=== PATIENT | male | born 1955 | race Caucasian/White ===

== ENCOUNTER 2020-03-17 05:55 | Outpatient (RCR) | payer MEDICARE, OTHER ==
[~2020-03-17] VITALS: Ht 180.3 cm; Wt 97.7 kg
[2020-03-17] MEDS ORDERED: ALPR0.5T7 PO (13:55)
[2020-03-17] MEDS ORDERED: SOUR1000 PO (13:55)
[2020-03-17] MEDS ORDERED: ROSU10TA22 PO (13:55)
[2020-03-17] MEDS ORDERED: CYAN1TAB7 SL (13:55)
[2020-03-17] MEDS ORDERED: ZOLP5TAB7 PO (13:55)
[2020-03-17] MEDS ORDERED: RED600CA2 PO (13:55)
[2020-03-17] MEDS ORDERED: FISH1CAP3 PO (13:55)
[2020-03-17] MEDS ORDERED: CHOL10007 PO (13:55)
[2020-03-17] MEDS ORDERED: AMLO-250 PO (13:55)
[2020-03-17] MEDS ORDERED: ESCI20TA PO (13:55)
[2020-03-17] MEDS ORDERED: CALC1TAB84 PO (13:55)
[2020-03-17] MEDS ORDERED: MULT-1056 PO (13:55)
[2020-03-17] MEDS ORDERED: FENU500C PO (13:55)
[2020-03-17] MEDS ORDERED: ASCO-262 PO (13:55)
== END 2020-03-17 14:03 | disposition home or self-care (01) ==
LOC: PREOP 05:55
PROVIDERS: ATTEND Orthopaedic Surgery
DX: Z01.818 Encounter for other preprocedural examination (principal)

== ENCOUNTER 2020-03-24 06:22 | Day surgery (SDC) | payer MEDICARE, OTHER ==
--- NOTE | 2020-03-15 09:48 | HISTORY AND PHYSICAL ---
DATE OF SERVICE: ADMISSION HISTORY AND PHYSICAL DATE OF ADMISSION: 03/24/2020. Date of service, date of surgery and date of admission will be 03/24/2020 for right shoulder arthroscopy. HISTORY OF PRESENT ILLNESS: The patient is a 65-year-old right hand dominant gentleman with progressively worsening right shoulder pain. He reports a several month history of pain specifically with overhead activities. He reports popping and catching in his right shoulder. He reports no improvement with activity modifications. He denies neck pain, denies paresthesias. Due to functional impairment, the patient has elected to proceed with surgical intervention. REVIEW OF SYSTEMS: No chest pain, no shortness of breath and no dysuria. PAST MEDICAL HISTORY: Pulmonary fibrosis, hypertension and anxiety. PAST SURGICAL HISTORY: Coronary catheterization, left shoulder and bilateral feet. FAMILY HISTORY: Significant for Alzheimer's lymphoma. PRIMARY CARE PROVIDER: Dr. Bonilla. MEDICATIONS: Aspirin, Lexapro, rosuvastatin, amlodipine, alprazolam, Esbriet, hydrocodone and Ambien. ALLERGIES: No known drug allergies. SOCIAL HISTORY: The patient drinks alcohol socially. He is a former smoker. RADIOGRAPHS: Reveal no acute or chronic changes of the right shoulder. PHYSICAL EXAMINATION: GENERAL: The patient is well-developed, well-nourished and in no acute distress. HEENT: Normocephalic and atraumatic. Pupils are equal, round and reactive lateral. Oropharynx is clear. NECK: Supple, no lymphadenopathy. LUNGS: Clear to auscultation bilaterally. HEART: Regular rate and rhythm. ABDOMEN: Soft, nontender and nondistended. EXTREMITIES: The right shoulder demonstrates positive Neer's and positive Hawkin sign. He has crepitus with glenohumeral rotation with a positive Suffolk's maneuver. He has pain with resisted abduction and external rotation, but no weakness elicited. He has full active forward elevation, external and internal rotation, but it is painful beyond 90 degrees. He has negative Spurling's maneuver. IMPRESSION: Right shoulder SLAP tear with possible rotator cuff tear. PLAN: Right shoulder arthroscopy with biceps tenotomy, labral debridement, acromioplasty and possible rotator cuff repair. The risks, benefits, options, ramifications and recovery were discussed at length with the patient. He understands and wishes to proceed. Job ID: [id number] DocumentID: [id number] Dictated Date: 03/15/2020 08:15:38 Leasing Sales Consultant Date: 03/15/2020 09:47:55 Dictated By: HUMA DOS SANTOS MD
[2020-03-24] VITALS (11 sets, daily range): BP systolic 117–136; BP diastolic 78–108
[~2020-03-24] VITALS: Ht 180.3 cm; Wt 97.7 kg
[~2020-03-24 06:22] MED LIST: ALPR0.5T7 PO; AMLO-250 PO; ASCO-262 PO; CALC1TAB84 PO; CHOL10007 PO; CYAN1TAB7 SL; ESCI20TA PO; FENU500C PO; FISH1CAP3 PO; MULT-1056 PO; RED600CA2 PO; ROSU10TA22 PO; SOUR1000 PO; ZOLP5TAB7 PO
[2020-03-24] MEDS ORDERED: LACTATED RINGERS 1,000 ML IV PRN (06:27)
[2020-03-24] MEDS ORDERED: ceFAZolin INJECTION 1,000 MG in WATER (STERILE) FOR INJECTION 10 ML IV ONE (06:30)
[2020-03-24] MEDS ORDERED: BUPIVACAINE 0.5% 30 ML (SENSORCAINE) VIAL ONE (06:44)
[2020-03-24] MEDS ORDERED: LIDOCAINE PF 2% 5 ML (XYLOCAINE) VIAL ONE ×2 (06:44→07:27)
[2020-03-24] MEDS ORDERED: fentaNYL INJECTION 100 MCG/2 ML AMP ONE (06:44)
[2020-03-24] MEDS ORDERED: LIDOCAINE PF 0.5% 50 ML (XYLOCAINE) VIAL ONE (06:44)
[2020-03-24] MEDS ORDERED: MIDAZOLAM 2 MG/2 ML (VERSED) VIAL ONE (06:44)
[2020-03-24] MEDS ORDERED: CATHETER FLUSH 10 ML SYR IV PRN (06:45)
[2020-03-24] MEDS ORDERED: ROPIVACAINE 5MG/ML 30ML VIAL ONE (07:23)
[2020-03-24] MEDS ORDERED: GLYCOPYRROLATE 0.2 MG/ML (ROBINUL) 2 ML VIAL ONE (07:27)
[2020-03-24] MEDS ORDERED: proPOfol 200 MG/20 ML (DIPRIVAN) VIAL IV ONE (07:27)
[2020-03-24] MEDS ORDERED: NEOSTIGMINE 3 MG/3 ML VIAL ONE (07:27)
[2020-03-24] MEDS ORDERED: ROCURONIUM 10 MG/ML 5 ML SYRINGE IV ONE (07:27)
[2020-03-24] MEDS ORDERED: ONDANSETRON 4 MG/2 ML (SDV) Z0FRAN ONE (07:27)
--- NOTE | 2020-03-24 07:30 | Progress Note-Pre Operative ---
Pre-Operative Progress Note H&P Reviewed The H&P was reviewed, patient examined and no changes noted. Date Seen by Provider: Mar 24, 2020 Time Seen by Provider: 07:15 Date H&P Reviewed: Mar 24, 2020 Time H&P Reviewed: 07:11 Pre-Operative Diagnosis: right shoulder SLAP tear HUMA DOS SANTOS MD Mar 24, 2020 07:30
--- NOTE | 2020-03-24 07:31 | Progress Note-Post Operative ---
Post-Operative Progess Note Surgeon (s)/Lead Oracle Developer (s) Surgeon HUMA DOS SANTOS MD Lead Oracle Developer: none Pre-Operative Diagnosis right shoulder SLAP tear Post-Operative Diagnosis right shoulder rotator cuff tear Procedure & Operative Findings Date of Procedure 03/24/20 Procedure Performed/Findings right shoulder arthroscopic acromioplasty and open rotator cuff repair Anesthesia Type GETA plus interscalene Estimated Blood Loss Estimated blood loss (mL): minimal Specimens/Packing Specimens Removed none Packing: none HUMA DOS SANTOS MD Mar 24, 2020 07:31
[2020-03-24] MEDS ORDERED: SUCCINYLCHOLINE INJ 100 MG/5 ML SYR/VIAL ONE (08:09)
[2020-03-24] MEDS ORDERED: SEVOFLURANE (ULTANE) 15 ML INHAL SOLN ONE (08:32)
--- NOTE | 2020-03-24 08:52 | Anesthesia-General Post-Op ---
General Patient Condition Mental Status/LOC: Same as Preop Cardiovascular: Satisfactory Nausea/Vomiting: Absent Respiratory: Satisfactory Pain: Controlled Complications: Absent Post Op Complications Complications None Follow Up Care/Instructions Patient Instructions None needed. Anesthesia/Patient Condition Patient Condition Patient is doing well, no complaints, stable vital signs, no apparent adverse anesthesia problems. No complications reported per nursing. DODIE BARRETO CRNA Mar 24, 2020 08:52
[2020-03-24] MEDS ORDERED: MEPERIDINE (DEMEROL) INJ 50 MG/ML IVP ONE (09:00)
[2020-03-24] MEDS ORDERED: morphine INJ 10 MG/ML 1ML (SYR OR VIAL) IVP ONE (09:00)
[2020-03-24] MEDS ORDERED: ONDANSETRON 4 MG/2 ML (SDV) Z0FRAN IVP PRN (09:00)
[2020-03-24] MEDS ORDERED: RT-ALBUTEROL SULF 2.5 MG/3 ML PRE-MIX VIAL ONE (09:01)
[2020-03-24] MEDS ORDERED: RT-ALBUTEROL SULF 2.5 MG/3 ML PRE-MIX VIAL INH ONE (09:15)
[2020-03-24] MEDS ORDERED: OXYC-471 PO (09:42)
--- NOTE | 2020-03-24 09:42 | OPERATIVE REPORT ---
DATE OF SERVICE: 03/24/2020 PREOPERATIVE DIAGNOSIS: Right shoulder SLAP tear. POSTOPERATIVE DIAGNOSIS: Right shoulder rotator cuff tear. PROCEDURES: 1. Right shoulder open rotator cuff repair. 2. Right shoulder arthroscopic acromioplasty. SURGEON: Jesse Thrasher MD BIRD KEEPER: No assistants. ANESTHESIA: General endotracheal plus interscalene nerve block by Eduardo Abreu CRNA. ESTIMATED BLOOD LOSS: Minimal. DRAINS: None. COMPLICATIONS: None. POSTOPERATIVE PLAN: Passive range of motion and sling wear for 4 weeks. The patient was transferred to the recovery room awake and in stable condition. STATEMENT OF MEDICAL NECESSITY: The patient is a 65-year-old right hand dominant gentleman with complaints of right shoulder pain and weakness. He had a positive Neer's, positive Hawkin sign. He has weakness with abduction and external rotation. He failed respond to conservative measures and due to functional impairment, the patient elected to proceed with surgical intervention. Examination under anesthesia revealed forward elevation of 170 degrees, external rotation of 85 degrees, internal rotation of 75 degrees. Arthroscopic findings demonstrated a 1 x 1 cm supraspinatus tear at the mid portion of its insertion site. The biceps insertion demonstrated fraying, but no detachment. The labrum was intact throughout. The remainder of the rotator cuff was intact. There was no significant glenoid or humeral head articular wear. Subacromial space demonstrated moderate bursitis with sloping of the anterolateral acromion. DESCRIPTION OF PROCEDURE: After risks and benefits of procedure were discussed and questions were answered, informed consent was signed and placed on chart, the operative site was confirmed, and preoperative holding area initialed by the surgeon. The patient was transferred to the operating room and after adequate levels of general endotracheal anesthetic were obtained, a timeout was called, confirming the operative site. Examination under anesthesia was performed with above findings noted. The right upper extremity was prepped and draped in the usual sterile fashion. Shoulder was injected with 20 mL fluid and standard posterior portal was placed under direct visualization. Anterior spinal needle was inserted, and the labrum was carefully probed. The scope was redirected into the subacromial space. Lateral portal was created. Bursectomy was performed and the acromion was planed to a flat type 1 acromion. The lateral portal was then extended. The deltoid was split in line with its fibers leaving attached to the acromion. The rotator cuff tear was mobilized, and a single corkscrew anchor was placed in a modified Hugh-Pio repair performed with excellent repair obtained. No undue tension was noted on that side. The wound was copiously irrigated. The deltoid was repaired in [id number] fashion using #2 FiberWire in [id number] interrupted fashion. The wound was further irrigated, 3-0 Vicryl was used to reapproximate subcutaneous tissue. Skin was closed with 4-0 nylon running alternating horizontal mattress fashion. The portal sites were closed with 4-0 nylon in simple interrupted fashion. A soft dressing and sling were applied. The patient transferred to recovery room, awake and in stable condition. Job ID: [id number] DocumentID: [id number] Dictated Date: 03/24/2020 08:49:38 Offshore Wind Operations Manager Date: 03/24/2020 09:41:55 Dictated By: JESSE THRASHER MD
== END 2020-03-24 11:15 | disposition home or self-care (01) ==
LOC: SDC 06:22
PROVIDERS: ATTEND Orthopaedic Surgery
DX: M75.101 Unspecified rotator cuff tear or rupture of right shoulder, not specified as traumatic (principal); S43.431A Superior glenoid labrum lesion of right shoulder, initial encounter; I10 Essential (primary) hypertension; J44.9 Chronic obstructive pulmonary disease, unspecified; F41.9 Anxiety disorder, unspecified; M10.9 Gout, unspecified; J84.10 Pulmonary fibrosis, unspecified; Z79.82 Long term (current) use of aspirin; Z79.899 Other long term (current) drug therapy
CPT/HCPCS: 23412; 29822; 29826; 87081; C1713